=== PATIENT | male | born 1980 | race African-American/Black ===

== ENCOUNTER 2018-10-22 09:54 | Emergency (ER) | payer MEDICAID ==
[~2018-10-22] VITALS: Ht 182.9 cm; Wt 97.0 kg
[2018-10-22 10:03] VITALS: BP 121/80
== END 2018-10-22 12:50 | disposition left against medical advice (07) ==
LOC: ER 09:54
DX: Z53.21 Procedure and treatment not carried out due to patient leaving prior to being seen by health care provider (principal)

== ENCOUNTER 2018-11-13 09:55 | Emergency (ER) | payer MEDICAID ==
[~2018-11-13] VITALS: Ht 175.3 cm; Wt 109.0 kg
[2018-11-13] MEDS ORDERED: TRAM300C3 PO (10:27)
[2018-11-13] MEDS ORDERED: OLANZAPINE 10MG TABLET PO SCH (18:00)
[2018-11-13] MEDS ORDERED: LORAZEPAM 1MG TABLET PO ONE (18:00)
[2018-11-13 18:41] LABS: BASOPHILS % 0.7 % (0.0-2.0); EOSINOPHILS % 1.3 % (0.0-5.0); HEMATOCRIT. 50.3 % (42.0-52.0); HEMOGLOBIN. 16.7 g/dL (14.0-18.0); LYMPHOCYTES % 41.8 % (20.0-50.0); MEAN CORPUSCULAR HEMOGLOBIN 29.7 pg (28.0-32.0); MEAN CORPUSCULAR VOLUME 89.3 fL (80.0-94.0); MEAN PLATELET VOLUME 8.5 fl (7.4-10.4); MONOCYTES % 6.6 % (2.0-8.0); NEUTROPHILS % 49.6 % (40.0-76.0); PLATELET 223 x1000/uL (130-400); RED BLOOD CELL COUNT 5.63 mill/uL (4.7-6.1); RED CELL DISTRIBUTION WIDTH 13.6 % (11.6-14.6)
[2018-11-13 18:46] LABS: CHLORIDE 107 mEq/L (98-107)
[2018-11-13 18:51] LABS: ETHANOL BLOOD < 10 mg/dL
[2018-11-13 20:23] LABS: CLARITY URINE CLEAR (CLEAR); COLOR URINE YELLOW (YELLOW); KETONES URINE NEGATIVE (NEGATIVE); LEUKOCYTE ESTERASE URINE NEGATIVE (NEGATIVE); NITRITE URINE NEGATIVE (NEGATIVE); OCCULT BLOOD URINE 1+ (NEGATIVE); PH URINE 6.5 (4.5-8.0); PROTEIN URINE 2+ (NEGATIVE); SPECIFIC GRAVITY URINE 1.022 (1.005-1.030)
[2018-11-13] MEDS ORDERED: IBUPROFEN 400MG TABLET PO ONE (20:30)
[2018-11-13 20:36] LABS: *AMPHETAMINES SCREEN URINE NEGATIVE (NEGATIVE); *BARBITURATES SCREEN URINE NEGATIVE (NEGATIVE); *BENZODIAZEPINES SCREEN URINE NEGATIVE (NEGATIVE); *COCAINE SCREEN URINE NEGATIVE (NEGATIVE); CANNABINOID URINE SCREEN NEGATIVE (NEGATIVE); METHADONE URINE SCREEN NEGATIVE (NEGATIVE); OPIATES URINE SCREEN NEGATIVE (NEGATIVE); PHENCYCLIDINE URINE SCREEN NEGATIVE (NEGATIVE)
[2018-11-14 08:25] VITALS: BP 122/78
== END 2018-11-14 08:31 | disposition home or self-care (01) ==
LOC: ER 09:55
DX: R45.851 Suicidal ideations (principal); R44.0 Auditory hallucinations; Z90.49 Acquired absence of other specified parts of digestive tract
CPT/HCPCS: 36415; 80305; 80307; 80329; 99284

== ENCOUNTER 2023-11-27 12:06 | Emergency (ER) | payer MEDICAID, OTHER ==
[~2023-11-27] VITALS: Ht 182.9 cm; Wt 99.8 kg
[~2023-11-27 12:06] MED LIST: TRAM300C3 PO
[2023-11-27 12:24] VITALS: O2SAT 97
[2023-11-27] MEDS ORDERED: LIDO700A15 TP (14:46)
[2023-11-27] MEDS ORDERED: NAPR-1176 MT (14:46)
[2023-11-27] MEDS: KETOROLAC 15MG/ML VIAL IM ONE (14:54)
[2023-11-27] MEDS: ACETAMINOPHEN 325MG TABLET PO ONE (14:54)
[2023-11-27 15:05] VITALS: BP 147/90; PULSE 82; RESP 18; TEMP 98.2
== END 2023-11-27 15:09 | disposition home or self-care (01) ==
LOC: ER 13:12
DX: M54.9 Dorsalgia, unspecified (principal); Z76.5 Malingerer [conscious simulation]; Z88.6 Allergy status to analgesic agent; Z88.8 Allergy status to other drugs, medicaments and biological substances
CPT/HCPCS: 99283; J1885